=== PATIENT | male | born 1990 | race Two or more races ===

== ENCOUNTER 2019-09-13 23:58 | Emergency (ER) | payer OTHER ==
[~2019-09-13] VITALS: Ht 177.8 cm; Wt 65.3 kg
[2019-09-14 00:10] VITALS: BP 144/68
[2019-09-14] MEDS ORDERED: CEFTRIAXONE 1 G VIAL IM ONE (01:30)
[2019-09-14] MEDS ORDERED: AZITHROMYCIN 250 MG TABLET ONE (01:30)
[2019-09-14] MEDS ORDERED: AZITHROMYCIN 250 MG TABLET PO ONE (01:30)
[2019-09-14] MEDS ORDERED: CEFTRIAXONE 500 MG VIAL ONE (01:33)
[2019-09-14] MEDS ORDERED: LIDOCAINE /MPF 1% VIAL 5 ML VIAL ONE (01:33)
== END 2019-09-14 01:47 | disposition home or self-care (01) ==
LOC: ER 09-14
DX: Z20.2 Contact with and (suspected) exposure to infections with a predominantly sexual mode of transmission (principal)
CPT/HCPCS: 96372; 99283; J0696; J3490

== ENCOUNTER 2020-02-27 09:08 | Emergency (ER) | payer OTHER ==
[~2020-02-27] VITALS: Ht 185.4 cm; Wt 79.4 kg
--- NOTE | 2020-02-27 09:14 | NUR ---
DR GREENE AT BEDSIDE FOR EVAL.
[2020-02-27 09:41] LABS: APPEARANCE,URINE Clear (CLEAR); BILIRUBIN,URINE Negative (NEGATIVE); BLOOD, URINE Negative Ery/uL (NEGATIVE); COLOR,URINE Yellow (YELLOW); KETONES,URINE Negative (NEGATIVE); LEUKOCYTE ESTERASE ,URINE Negative (NEGATIVE); NITRITE, URINE Negative (NEGATIVE); PH,URINE 6.5 (5.0-8.0); PROTEIN,URINE Negative (NEGATIVE); UGLUCOSE Negative (NEGATIVE); UROBILINOGEN,URINE 0.2 EU/dL (0.2)
[2020-02-27] MEDS ORDERED: CEFTRIAXONE 1 G VIAL ONE (09:54)
[2020-02-27] MEDS ORDERED: AZITHROMYCIN 250 MG TABLET ONE (09:54)
[2020-02-27] MEDS ORDERED: METRONIDAZOLE 500 MG TABLET ONE (09:55)
[2020-02-27] MEDS: METRONIDAZOLE 500 MG TABLET PO ONE (09:57)
[2020-02-27] MEDS ORDERED: LIDOCAINE /MPF 1% VIAL 5 ML VIAL ONE (09:57)
[2020-02-27] MEDS ORDERED: AZITHROMYCIN 250 MG TABLET PO ONE (10:00)
[2020-02-27] MEDS: CEFTRIAXONE 1 G VIAL IM ONE (10:08)
--- NOTE | 2020-02-27 10:13 | NUR ---
SEEN AND EVALUATED BY ERMD. MEDICATED ORDERED. D/C IN STABLE CONDITION.
[2020-02-27 10:15] VITALS: BP 132/71
== END 2020-02-27 10:15 | disposition home or self-care (01) ==
LOC: ER 09:15
DX: R36.9 Urethral discharge, unspecified (principal)
CPT/HCPCS: 81001; 87491; 87591; 96372; 99283; J0696; J3490; 81000-TC

== ENCOUNTER 2020-11-26 01:50 | Emergency (ER) | payer OTHER ==
[~2020-11-26] VITALS: Ht 185.4 cm; Wt 79.4 kg
[2020-11-26 01:50] VITALS: BP 122/79
[2020-11-26] MEDS ORDERED: LIDOCAINE /MPF 1% VIAL 5 ML VIAL ONE (02:09)
[2020-11-26] MEDS ORDERED: CEFTRIAXONE 1 G VIAL ONE (02:09)
[2020-11-26] MEDS ORDERED: DOXYCYCLINE HYCLATE (100 MG) 100 MG TABLET ONE (02:09)
[2020-11-26] MEDS ORDERED: DOXY100C41 PO (02:19)
[2020-11-26] MEDS ORDERED: CEFTRIAXONE 1 G VIAL IM ONE (02:30)
[2020-11-26] MEDS ORDERED: DOXYCYCLINE HYCLATE (100 MG) 100 MG TABLET PO ONE (02:30)
== END 2020-11-26 02:48 | disposition home or self-care (01) ==
LOC: ER 01:54
DX: A54.9 Gonococcal infection, unspecified (principal)
CPT/HCPCS: 87491; 87591; 96372; 99283; J0696; J3490

== ENCOUNTER 2022-12-28 23:20 | Emergency (ER) | payer OTHER ==
[~2022-12-28] VITALS: Ht 185.4 cm; Wt 79.4 kg
[~2022-12-28 23:20] MED LIST: DOXY-326 PO
--- NOTE | 2022-12-29 00:51 | NUR ---
BIBS. PARTNER TESTED POSITIVE FOR CLAMYDIA.
[2022-12-29] MEDS ORDERED: LIDOCAINE /MPF 1% VIAL 5 ML VIAL ONE (01:29)
[2022-12-29] MEDS ORDERED: AZITHROMYCIN 250 MG TABLET ONE (01:29)
[2022-12-29] MEDS ORDERED: CEFTRIAXONE 500 MG VIAL ONE (01:29)
[2022-12-29] MEDS ORDERED: METRONIDAZOLE 500 MG TABLET ONE (01:29)
[2022-12-29] MEDS ORDERED: METRONIDAZOLE 500 MG TABLET PO ONE (01:30)
[2022-12-29] MEDS ORDERED: AZITHROMYCIN 250 MG TABLET PO ONE (01:30)
[2022-12-29] MEDS ORDERED: CEFTRIAXONE 500 MG VIAL IM ONE (01:30)
[2022-12-29 01:56] LABS: BILIRUBIN,URINE NEGATIVE (NEGATIVE); COLOR,URINE YELLOW (YELLOW); LEUKOCYTE ESTERASE ,URINE NEGATIVE (NEGATIVE); NITRITE, URINE NEGATIVE (NEGATIVE); PH,URINE 6.5 (5.0-8.0); PROTEIN,URINE NEGATIVE (NEGATIVE); UGLUCOSE NEGATIVE (NEGATIVE)
--- NOTE | 2022-12-29 02:11 | NUR ---
Patient discharged to home in stable condition. Written and verbal after care instructions given. Patient verbalizes understanding of instruction.
[2022-12-29 02:12] VITALS: BP 116/75
== END 2022-12-29 02:12 | disposition home or self-care (01) ==
LOC: ER 23:23
DX: A64 Unspecified sexually transmitted disease (principal)
CPT/HCPCS: 99283; 96372; 81003; 87491; 87591; J0696; J3490